=== PATIENT | male | born 1930 | race Caucasian/White ===

== ENCOUNTER → 2017-02-21 | Outpatient (CLI) | payer MEDICARE, OTHER ==
[~2017-02-21] MED LIST: LOSA100T6 PO; METO25TA35 PO; OMNIPAQUE 350 MG/ML, 100ML BOTTLE ONE; ROSU40TA PO
== END | disposition home or self-care (01) ==
LOC: RAD 07:27
PROVIDERS: ATTEND Urology
DX: C61 Malignant neoplasm of prostate (principal); N13.39 Other hydronephrosis; R59.0 Localized enlarged lymph nodes; M99.85 Other biomechanical lesions of pelvic region; I70.0 Atherosclerosis of aorta; Z90.79 Acquired absence of other genital organ(s); Z98.890 Other specified postprocedural states
CPT/HCPCS: 74177; 78306; A9503; Q9967

== ENCOUNTER 2017-04-19 23:43 | Observation (INO) | payer MEDICARE, OTHER ==
[~2017-04-19] VITALS: Ht 167.6 cm; Wt 57.6 kg
[~2017-04-19 23:43] MED LIST changes: -OMNIPAQUE 350 MG/ML, 100ML BOTTLE ONE
[2017-04-20] MEDS ORDERED: ASPIRIN 81 MG TABLET CHEW PO ONE
[2017-04-20] MEDS ORDERED: SODIUM CHLORIDE FLUSH 10ML SYR IVF ONE
[2017-04-20] MEDS ORDERED: ASPIRIN 81 MG TABLET CHEW ONE (00:02)
[2017-04-20 00:30] LABS: BLOOD UREA NITROGEN 27 mg/dL (7-18)
[2017-04-20 00:31] LABS: ASPARTATE AMINO TRANSFERASE 34 U/L (15-37)
[2017-04-20 00:35] LABS: IS PT STATUS REG ER OR PRE ER? YES
[2017-04-20] MEDS ORDERED: OMNIPAQUE 350 MG/ML, 100ML BOTTLE ONE (01:09)
[2017-04-20] MEDS ORDERED: MORPHINE SULFATE 4 MG/ML, 1ML IVPush PRN (02:00)
[2017-04-20] MEDS ORDERED: ONDANSETRON 2MG/ML, 2ML IVPush PRN ×2 (02:00→02:30)
[2017-04-20] MEDS ORDERED: RIVA20TA PO (02:12)
[2017-04-20] MEDS ORDERED: ACETAMINOPHEN 325 MG TABLET PO PRN (02:30)
[2017-04-20] MEDS ORDERED: POLYETHYLENE GLYCOL 17 GM PACKET PO PRN (02:30)
[2017-04-20] MEDS ORDERED: DOCUSATE 100 MG CAPSULE PO PRN (02:30)
[2017-04-20] MEDS ORDERED: BISACODYL 10 MG SUPP PR PRN (02:30)
[2017-04-20] MEDS ORDERED: TRAZODONE 50MG TABLET PO PRN (02:30)
[2017-04-20] MEDS ORDERED: LABETALOL 5MG/ML, 20ML IVPush PRN (02:30)
[2017-04-20 02:35] VITALS: BP 156/81
[2017-04-20 06:41] LABS: IS PT STATUS REG ER OR PRE ER? NO
[2017-04-20 07:30] VITALS: BP 146/76
[2017-04-20] MEDS ORDERED: REGADENOSON 0.4 MG/5 ML SYRINGE ONE (08:40)
[2017-04-20] MEDS ORDERED: LOSARTAN 50MG TABLET PO SCH (09:00)
[2017-04-20] MEDS ORDERED: METOPROLOL TARTRATE 25 MG TABLET PO SCH (09:00)
[2017-04-20] MEDS ORDERED: ASPIRIN 81 MG TABLET CHEW PO SCH (09:00)
[2017-04-20] MEDS ORDERED: ATORVASTATIN 80 MG TABLET PO SCH (09:00)
[2017-04-20] MEDS ORDERED: RIVAROXABAN 20 MG TABLET PO SCH (09:00)
[2017-04-20 12:34] LABS: IS PT STATUS REG ER OR PRE ER? NO
[2017-04-20 14:10] VITALS: BP 155/77
[2017-04-20] MEDS ORDERED: OMEP-110 PO (16:03)
== END 2017-04-20 17:14 | disposition home or self-care (01) ==
LOC: ED 23:59 → EDIP 04-20 01:44 → INTOOBSV 04-20 01:44 → 5SO 04-20 02:25
PROVIDERS: ADMIT Internal Medicine; ATTEND Internal Medicine
DX: R07.89 Other chest pain (principal); R79.89 Other specified abnormal findings of blood chemistry; N17.9 Acute kidney failure, unspecified; M19.90 Unspecified osteoarthritis, unspecified site; K57.90 Diverticulosis of intestine, part unspecified, without perforation or abscess without bleeding; K22.5 Diverticulum of esophagus, acquired; K22.2 Esophageal obstruction; K21.9 Gastro-esophageal reflux disease without esophagitis; D64.9 Anemia, unspecified; E78.5 Hyperlipidemia, unspecified; I10 Essential (primary) hypertension; I25.110 Atherosclerotic heart disease of native coronary artery with unstable angina pectoris; Z79.01 Long term (current) use of anticoagulants; Z85.46 Personal history of malignant neoplasm of prostate; Z86.711 Personal history of pulmonary embolism; Z87.442 Personal history of urinary calculi; Z82.49 Family history of ischemic heart disease and other diseases of the circulatory system
CPT/HCPCS: 36415; 71010; 71275; 78452; 80053; 84484; 85025; 85610; 85730; 93005; 93017; 93306; 99285; A9502; C9898; G0378; J2785; Q9967

== ENCOUNTER → 2017-04-29 | Outpatient (CLI) | payer MEDICARE, OTHER ==
[~2017-04-29] MED LIST changes: +OMEP-110 PO; +RIVA20TA PO
[2017-04-29 10:44] LABS: BLOOD UREA NITROGEN 22 mg/dL (7-18)
== END | disposition home or self-care (01) ==
LOC: LAB 10:05
PROVIDERS: ATTEND Physician Assistant
DX: I99.8 Other disorder of circulatory system (principal)
CPT/HCPCS: 36415; 80048

== ENCOUNTER → 2017-06-06 | Outpatient (CLI) | payer MEDICARE, OTHER ==
[~2017-06-06] MED LIST changes: +OMNIPAQUE 350 MG/ML, 100ML BOTTLE ONE
== END | disposition home or self-care (01) ==
LOC: RAD 13:32
PROVIDERS: ATTEND Urology
DX: C61 Malignant neoplasm of prostate (principal); K44.9 Diaphragmatic hernia without obstruction or gangrene; N28.1 Cyst of kidney, acquired; K57.30 Diverticulosis of large intestine without perforation or abscess without bleeding; J84.10 Pulmonary fibrosis, unspecified; N13.30 Unspecified hydronephrosis; M89.8X8 Other specified disorders of bone, other site
CPT/HCPCS: 74177; Q9967

== ENCOUNTER 2017-11-08 11:43 | Emergency (ER) | payer MEDICARE, OTHER ==
[~2017-11-08] VITALS: Ht 167.6 cm; Wt 56.0 kg
[~2017-11-08 11:43] MED LIST changes: -OMNIPAQUE 350 MG/ML, 100ML BOTTLE ONE
[2017-11-08 13:15] LABS: BASOPHILS # (AUTO) 0.05 x10^3/uL (0-0.1); BASOPHILS % (AUTO) 1 % (0-1); EOSINOPHILS # (AUTO) 0.06 x10^3/uL (0-0.4); EOSINOPHILS % (AUTO) 1 % (1-7); LYMPHOCYTES # (AUTO) 1.45 x10^3/uL (1-3.4); LYMPHOCYTES % (AUTO) 19 % (22-44); MD NO; MEAN CORPUSCULAR HGB CONC 33.1 g/dL (33.2-36.2); MEAN CORPUSCULAR VOLUME 93.7 fL (81-97); MONOCYTES # (AUTO) 0.65 x10^3/uL (0.2-0.8); MONOCYTES % (AUTO) 9 % (2-9); NEUTROPHILS # (AUTO) 5.38 x10^3/uL (1.8-6.8); NEUTROPHILS % (AUTO) 71 % (42-75); PLATELET COUNT 297 x10^3/uL (130-400); RED BLOOD COUNT 4.52 x10^6/uL (4.38-5.82); RED CELL DISTRIBUTION WIDTH 13.7 % (9.4-14.8)
[2017-11-08 13:25] LABS: ANION GAP 8 mmol/L (5-15); CHLORIDE 110 mmol/L (98-107); CREATININE 1.26 mg/dL (0.7-1.3)
[2017-11-08 14:39] LABS: MICROSCOPIC NOT IND
[2017-11-08 14:49] LABS: CULTURE INDICATED? NO
[2017-11-08 15:17] VITALS: BP 168/88
== END 2017-11-08 16:01 | disposition home or self-care (01) ==
LOC: ED 15:50
DX: S22.41XA Multiple fractures of ribs, right side, initial encounter for closed fracture (principal); I10 Essential (primary) hypertension; E78.00 Pure hypercholesterolemia, unspecified; W01.0XXA Fall on same level from slipping, tripping and stumbling without subsequent striking against object, initial encounter; Y93.89 Activity, other specified; Y92.89 Other specified places as the place of occurrence of the external cause; Y99.8 Other external cause status
CPT/HCPCS: 36415; 71250; 74022; 80048; 81003; 82040; 85025; 99285

== ENCOUNTER 2017-12-06 23:14 | Emergency (ER) | payer MEDICARE, OTHER ==
[~2017-12-06] VITALS: Ht 170.2 cm; Wt 57.6 kg
[2017-12-07] MEDS ORDERED: SODIUM CHLORIDE FLUSH 10ML SYR IVF ONE
[2017-12-07 00:16] LABS: BASOPHILS # (AUTO) 0.01 x10^3/uL (0-0.1); BASOPHILS % (AUTO) 0 % (0-1); EOSINOPHILS % (AUTO) 1 % (1-7); LYMPHOCYTES # (AUTO) 1.55 x10^3/uL (1-3.4); LYMPHOCYTES % (AUTO) 22 % (22-44); MD NO; MEAN CORPUSCULAR HEMOGLOBIN 30.2 pg (27.5-34.5); MEAN CORPUSCULAR HGB CONC 32.2 g/dL (33.2-36.2); MEAN CORPUSCULAR VOLUME 93.8 fL (81-97); MEAN PLATELET VOLUME 7.7 fL (7.4-10.4); MONOCYTES # (AUTO) 0.64 x10^3/uL (0.2-0.8); MONOCYTES % (AUTO) 9 % (2-9); NEUTROPHILS # (AUTO) 4.82 x10^3/uL (1.8-6.8); NEUTROPHILS % (AUTO) 68 % (42-75); PLATELET COUNT 284 x10^3/uL (130-400); RED BLOOD COUNT 4.36 x10^6/uL (4.38-5.82); RED CELL DISTRIBUTION WIDTH 13.6 % (9.4-14.8)
[2017-12-07 00:29] LABS: ALBUMIN 3.7 g/dL (3.4-5.0); ANION GAP 9 mmol/L (5-15); CALCIUM 8.7 mg/dL (8.5-10.1); CHLORIDE 110 mmol/L (98-107); CREATININE 1.32 mg/dL (0.7-1.3); T4 (THYROXINE) 9.3 mcg/dL (4.5-12.1)
[2017-12-07 01:17] VITALS: BP 109/56
== END 2017-12-07 01:49 | disposition home or self-care (01) ==
LOC: ED 23:59
DX: R61 Generalized hyperhidrosis (principal); R07.89 Other chest pain; I10 Essential (primary) hypertension; E78.00 Pure hypercholesterolemia, unspecified; Z85.46 Personal history of malignant neoplasm of prostate
CPT/HCPCS: 36415; 71045; 80048; 82040; 83880; 84436; 84443; 84484; 85025; 93005; 99285

== ENCOUNTER 2019-09-27 15:10 | Inpatient (IN) | payer MEDICARE, OTHER ==
[~2019-09-27] VITALS: Ht 167.6 cm; Wt 53.1 kg
[~2019-09-27 15:10] MED LIST changes: +LOSA100T14 PO; -LOSA100T6 PO
--- NOTE | 2019-09-27 15:16 | NUR ---
[facility] THE IMAGING RESULTS SHOWED LUMBAR SPINE FX. THE PATIENT ARRIVES A&OX4, NO COMPLAINTS OF CP, SOB, N/V. REPORT RECIEVED FROM JONATHAN EMT.
[2019-09-27] MEDS ORDERED: METH750T87 PO (15:27)
[2019-09-27] MEDS ORDERED: ONDANSETRON 2MG/ML, 2ML IVPush ONE (15:30)
[2019-09-27] MEDS ORDERED: SODIUM CHLORIDE FLUSH 10ML SYR IVF ONE (15:30)
[2019-09-27 15:54] LABS: BASOPHILS # (AUTO) 0.03 x10^3/uL (0-0.1); BASOPHILS % (AUTO) 0 % (0-1); EOSINOPHILS # (AUTO) 0.06 x10^3/uL (0-0.4); EOSINOPHILS % (AUTO) 1 % (1-7); LYMPHOCYTES # (AUTO) 1.48 x10^3/uL (1-3.4); LYMPHOCYTES % (AUTO) 16 % (22-44); MD NO; MEAN CORPUSCULAR HEMOGLOBIN 31.8 pg (27.5-34.5); MEAN CORPUSCULAR HGB CONC 32.8 g/dL (33.2-36.2); MEAN CORPUSCULAR VOLUME 96.8 fL (81-97); MEAN PLATELET VOLUME 7.5 fL (7.4-10.4); MONOCYTES # (AUTO) 0.91 x10^3/uL (0.2-0.8); MONOCYTES % (AUTO) 10 % (2-9); NEUTROPHILS # (AUTO) 6.53 x10^3/uL (1.8-6.8); NEUTROPHILS % (AUTO) 73 % (42-75); PLATELET COUNT 293 x10^3/uL (130-400); RED BLOOD COUNT 4.15 x10^6/uL (4.38-5.82); RED CELL DISTRIBUTION WIDTH 14.5 % (9.4-14.8)
[2019-09-27] MEDS ORDERED: HYDROmorphone 1 MG/ML, 1ML VIAL ONE (15:54)
[2019-09-27] MEDS ORDERED: ONDANSETRON 2MG/ML, 2ML ONE (15:55)
[2019-09-27] MEDS: HYDROmorphone 2 MG/ML, 1ML IVPush PRN ×2 (15:56→16:31)
[2019-09-27 16:01] LABS: ALBUMIN 3.5 g/dL (3.4-5.0); ANION GAP 6 mmol/L (5-15); CALCIUM 9.6 mg/dL (8.5-10.1); CHLORIDE 113 mmol/L (98-107); CREATININE 1.14 mg/dL (0.7-1.3)
[2019-09-27 16:22] LABS: MICROSCOPIC NOT IND
[2019-09-27 16:24] LABS: CULTURE INDICATED? NO
--- NOTE | 2019-09-27 16:30 | NUR ---
[facility] TO DISCUSS POC
[2019-09-27] MEDS ORDERED: SODIUM CHLORIDE FLUSH 10ML SYR IVF PRN (17:00)
--- NOTE | 2019-09-27 17:21 | NUR ---
REPORT CALLED TO ADEOLA LARIOS. PT AWARE OF TRANSFER.
--- NOTE | 2019-09-27 17:29 | NUR ---
[facility] TO DISCUSS POC
[2019-09-27] MEDS ORDERED: POLYETHYLENE GLYCOL 17 GM PACKET PO PRN (17:30)
[2019-09-27] MEDS ORDERED: ONDANSETRON ODT 4 MG PO PRN (17:30)
[2019-09-27] MEDS ORDERED: ACETAMINOPHEN 325 MG TABLET PO PRN (17:30)
[2019-09-27] MEDS ORDERED: ONDANSETRON 2MG/ML, 2ML IVPush PRN (17:30)
[2019-09-27] MEDS: OXYcodone/APAP 5/325MG TABLET PO PRN ×2 (18:43→22:15)
[2019-09-27 18:59] VITALS: BP 177/97
[2019-09-27] MEDS: ATORVASTATIN 80 MG TABLET PO SCH (21:00)
[2019-09-28 00:30] VITALS: BP 135/72
[2019-09-28 04:59] LABS: BASOPHILS # (AUTO) 0.04 x10^3/uL (0-0.1); BASOPHILS % (AUTO) 1 % (0-1); EOSINOPHILS # (AUTO) 0.17 x10^3/uL (0-0.4); EOSINOPHILS % (AUTO) 3 % (1-7); LYMPHOCYTES # (AUTO) 1.63 x10^3/uL (1-3.4); LYMPHOCYTES % (AUTO) 28 % (22-44); MD NO; MEAN CORPUSCULAR HEMOGLOBIN 31.9 pg (27.5-34.5); MEAN CORPUSCULAR HGB CONC 32.8 g/dL (33.2-36.2); MEAN PLATELET VOLUME 7.2 fL (7.4-10.4); MONOCYTES # (AUTO) 0.75 x10^3/uL (0.2-0.8); MONOCYTES % (AUTO) 13 % (2-9); NEUTROPHILS # (AUTO) 3.25 x10^3/uL (1.8-6.8); NEUTROPHILS % (AUTO) 56 % (42-75); PLATELET COUNT 245 x10^3/uL (130-400); RED BLOOD COUNT 3.79 x10^6/uL (4.38-5.82); RED CELL DISTRIBUTION WIDTH 14.6 % (9.4-14.8)
[2019-09-28 05:07] LABS: ANION GAP 1 mmol/L (5-15); CHLORIDE 114 mmol/L (98-107)
[2019-09-28 05:11] LABS: ALANINE AMINOTRANSFERASE 22 U/L (12-78); ALKALINE PHOSPHATASE 86 U/L (45-117); BILIRUBIN,TOTAL 0.5 mg/dL (0.2-1.0); CREATININE 1.11 mg/dL (0.7-1.3); TOTAL PROTEIN 5.8 g/dL (6.4-8.2)
[2019-09-28] MEDS: morphine SULFATE 10 MG/ML, 1ML IVPush PRN ×3 (06:27→16:12)
[2019-09-28 06:59] VITALS: BP 138/81
[2019-09-28] MEDS: METOPROLOL SUCCINATE 25 MG TAB.ER.24H PO SCH (07:50)
[2019-09-28] MEDS: METHOCARBAMOL 750 MG TABLET PO SCH (07:51)
[2019-09-28] MEDS: LOSARTAN 50MG TABLET PO SCH (07:51)
[2019-09-28] MEDS ORDERED: OMNIPAQUE 350 MG/ML, 100ML BOTTLE ONE (09:32)
[2019-09-28] MEDS: OXYcodone/APAP 5/325MG TABLET PO PRN ×3 (10:36→21:40)
[2019-09-28] MEDS ORDERED: LIDODERM 5% PATCH TD PRN (11:30)
[2019-09-28 12:44] VITALS: BP 155/81
[2019-09-28 19:44] VITALS: BP 142/72
[2019-09-28] MEDS: ATORVASTATIN 80 MG TABLET PO SCH (21:40)
[2019-09-28] MEDS: SENNA/DOCUSATE TABLET PO PRN (21:41)
[2019-09-29 03:56] VITALS: BP 139/73
[2019-09-29] MEDS: OXYcodone/APAP 5/325MG TABLET PO PRN ×5 (04:19→22:17)
[2019-09-29 05:22] LABS: BASOPHILS # (AUTO) 0.04 x10^3/uL (0-0.1); BASOPHILS % (AUTO) 1 % (0-1); EOSINOPHILS % (AUTO) 2 % (1-7); LYMPHOCYTES # (AUTO) 1.22 x10^3/uL (1-3.4); LYMPHOCYTES % (AUTO) 15 % (22-44); MD NO; MEAN CORPUSCULAR HEMOGLOBIN 31.4 pg (27.5-34.5); MEAN CORPUSCULAR HGB CONC 32.3 g/dL (33.2-36.2); MEAN CORPUSCULAR VOLUME 97.1 fL (81-97); MEAN PLATELET VOLUME 7.6 fL (7.4-10.4); MONOCYTES # (AUTO) 0.66 x10^3/uL (0.2-0.8); MONOCYTES % (AUTO) 8 % (2-9); NEUTROPHILS # (AUTO) 6.03 x10^3/uL (1.8-6.8); NEUTROPHILS % (AUTO) 74 % (42-75); PLATELET COUNT 273 x10^3/uL (130-400); RED BLOOD COUNT 4.03 x10^6/uL (4.38-5.82); RED CELL DISTRIBUTION WIDTH 14.3 % (9.4-14.8)
[2019-09-29 05:24] LABS: ANION GAP 5 mmol/L (5-15); CHLORIDE 111 mmol/L (98-107); CREATININE 1.11 mg/dL (0.7-1.3)
[2019-09-29 08:14] VITALS: BP 150/70
[2019-09-29] MEDS: METOPROLOL SUCCINATE 25 MG TAB.ER.24H PO SCH (08:16)
[2019-09-29] MEDS: LOSARTAN 50MG TABLET PO SCH (08:16)
[2019-09-29] MEDS: METHOCARBAMOL 750 MG TABLET PO SCH ×2 (08:17→09:00)
[2019-09-29] MEDS ORDERED: GADOTERATE 7.5 MMOL/15 ML SYR ONE (13:00)
[2019-09-29 13:15] VITALS: BP 125/60
[2019-09-29 18:32] VITALS: BP 127/52
[2019-09-29] MEDS: ATORVASTATIN 80 MG TABLET PO SCH (20:56)
[2019-09-30 01:15] VITALS: BP 100/57
[2019-09-30 06:07] VITALS: BP 101/55
[2019-09-30 06:55] VITALS: BP 129/48
[2019-09-30 08:15] VITALS: BP 138/67
[2019-09-30] MEDS: METHOCARBAMOL 750 MG TABLET PO SCH (09:00)
[2019-09-30] MEDS: OXYcodone/APAP 5/325MG TABLET PO PRN ×3 (11:53→21:12)
[2019-09-30] MEDS: LOSARTAN 50MG TABLET PO SCH (11:56)
[2019-09-30] MEDS: METOPROLOL SUCCINATE 25 MG TAB.ER.24H PO SCH (11:57)
[2019-09-30 13:24] VITALS: BP 121/77
[2019-09-30 19:40] VITALS: BP 146/80
[2019-09-30] MEDS: ATORVASTATIN 80 MG TABLET PO SCH (21:12)
[2019-10-01 01:46] VITALS: BP 137/74
[2019-10-01 07:39] VITALS: BP 109/65
[2019-10-01] MEDS: METOPROLOL SUCCINATE 25 MG TAB.ER.24H PO SCH (07:47)
[2019-10-01] MEDS: LOSARTAN 50MG TABLET PO SCH ×2 (07:48→07:53)
[2019-10-01] MEDS: OXYcodone/APAP 5/325MG TABLET PO PRN ×3 (07:49→16:55)
[2019-10-01] MEDS: SENNA/DOCUSATE TABLET PO PRN (07:50)
[2019-10-01] MEDS: METHOCARBAMOL 750 MG TABLET PO SCH (07:52)
[2019-10-01 13:38] VITALS: BP 125/70
[2019-10-01] MEDS ORDERED: MIDAZOLAM 1 MG/ML, 5ML ONE (14:31)
[2019-10-01] MEDS ORDERED: FENTANYL PF 100 MCG/2ML ONE (14:31)
[2019-10-01] MEDS ORDERED: NALOXONE 1 MG/ML, 2ML ONE (14:31)
[2019-10-01] MEDS ORDERED: FLUMAZENIL 0.1 MG/1 ML, 5ML ONE (14:31)
[2019-10-01 15:45] VITALS: BP 106/58
[2019-10-01 19:39] VITALS: BP 105/66
[2019-10-01] MEDS: ATORVASTATIN 80 MG TABLET PO SCH (19:56)
[2019-10-02 03:00] VITALS: BP 109/63
[2019-10-02] MEDS: METHOCARBAMOL 750 MG TABLET PO SCH (07:39)
[2019-10-02 07:54] VITALS: BP 131/68
[2019-10-02] MEDS: OXYcodone/APAP 5/325MG TABLET PO PRN ×4 (07:56→20:32)
[2019-10-02] MEDS: LOSARTAN 50MG TABLET PO SCH (07:56)
[2019-10-02] MEDS: METOPROLOL SUCCINATE 25 MG TAB.ER.24H PO SCH (07:57)
[2019-10-02] MEDS: SENNA/DOCUSATE TABLET PO PRN ×2 (08:01→20:32)
[2019-10-02 13:42] VITALS: BP 127/7
[2019-10-02 19:32] VITALS: BP 140/70
[2019-10-02] MEDS: ATORVASTATIN 80 MG TABLET PO SCH (20:32)
[2019-10-03 03:00] VITALS: BP 131/62
[2019-10-03 04:53] LABS: HCT (SEDRATE) 37.6 % (39.2-51.8)
[2019-10-03 04:55] LABS: BASOPHILS # (AUTO) 0.04 x10^3/uL (0-0.1); BASOPHILS % (AUTO) 1 % (0-1); EOSINOPHILS # (AUTO) 0.17 x10^3/uL (0-0.4); EOSINOPHILS % (AUTO) 3 % (1-7); LYMPHOCYTES % (AUTO) 17 % (22-44); MD NO; MEAN CORPUSCULAR HEMOGLOBIN 31.6 pg (27.5-34.5); MEAN CORPUSCULAR HGB CONC 32.7 g/dL (33.2-36.2); MEAN CORPUSCULAR VOLUME 96.5 fL (81-97); MEAN PLATELET VOLUME 7.3 fL (7.4-10.4); MONOCYTES # (AUTO) 0.52 x10^3/uL (0.2-0.8); MONOCYTES % (AUTO) 9 % (2-9); NEUTROPHILS # (AUTO) 4.23 x10^3/uL (1.8-6.8); NEUTROPHILS % (AUTO) 71 % (42-75); PLATELET COUNT 277 x10^3/uL (130-400); RED BLOOD COUNT 3.87 x10^6/uL (4.38-5.82); RED CELL DISTRIBUTION WIDTH 14.8 % (9.4-14.8)
[2019-10-03] MEDS: morphine SULFATE 10 MG/ML, 1ML IVPush PRN ×2 (04:58→12:25)
[2019-10-03 05:05] LABS: ANION GAP 6 mmol/L (5-15); CALCIUM 9.3 mg/dL (8.5-10.1); CHLORIDE 110 mmol/L (98-107)
[2019-10-03 05:07] LABS: CREATININE 1.03 mg/dL (0.7-1.3)
[2019-10-03 05:23] LABS: HEMOGLOBIN A1C 5.6 % (4.2-6.3)
[2019-10-03] MEDS ORDERED: CEFAZOLIN PMX 1GM/50ML 50 ML IVPB SCH (06:00)
[2019-10-03 07:51] VITALS: BP 145/79
[2019-10-03] MEDS ORDERED: EPINEPHRINE 1 MG/ML, 1ML ONE (08:09)
[2019-10-03] MEDS ORDERED: BUPIVACAINE/PF 0.5% ONE (08:09)
[2019-10-03] MEDS: METOPROLOL SUCCINATE 25 MG TAB.ER.24H PO SCH (08:10)
[2019-10-03] MEDS: METHOCARBAMOL 750 MG TABLET PO SCH (08:10)
[2019-10-03] MEDS: LOSARTAN 50MG TABLET PO SCH (08:10)
[2019-10-03] MEDS ORDERED: ROCURONIUM 10 MG/ML,10ML ONE (08:45)
[2019-10-03] MEDS ORDERED: LIDOCAINE PF 2%, 5ML ONE (08:45)
[2019-10-03] MEDS ORDERED: PROPOFOL 10 MG/ML, 20ML ONE (08:45)
[2019-10-03] MEDS ORDERED: CEFAZOLIN 1,000 MG ONE (08:45)
[2019-10-03] MEDS ORDERED: HYDROmorphone 2 MG/ML, 1ML IVPush PRN (09:30)
[2019-10-03] MEDS ORDERED: ACETAMINOPHEN 325 MG TABLET PO PRN (09:30)
[2019-10-03] MEDS ORDERED: OXYcodone 5 MG/5 ML ORAL.SOL UDC PO PRN (09:30)
[2019-10-03] MEDS ORDERED: hydrALAzine 20 MG/ML, 1ML IV PRN (09:30)
[2019-10-03] MEDS ORDERED: OMNIPAQUE 300 MG/ML, 10ML VIAL ONE (09:30)
[2019-10-03] MEDS ORDERED: ONDANSETRON 2MG/ML, 2ML IV PRN (09:30)
[2019-10-03] MEDS ORDERED: LORazepam 2 MG/ML, 1ML IVPush PRN (09:30)
[2019-10-03] MEDS ORDERED: MEPERIDINE/PF 25MG/ML,1ML IVPush PRN (09:30)
[2019-10-03] MEDS ORDERED: LABETALOL 5MG/ML, 20ML IV PRN (09:30)
[2019-10-03] MEDS ORDERED: OXYcodone 5 MG/5 ML ORAL.SOL UDC ONE (10:30)
[2019-10-03] MEDS: FENTANYL PF 100 MCG/2ML IV PRN ×4 (10:30→11:10)
[2019-10-03] MEDS ORDERED: FENTANYL PF 100 MCG/2ML ONE (10:30)
[2019-10-03] MEDS ORDERED: ACETAMINOPHEN 650 MG/20.3 ML UDC ONE (10:47)
[2019-10-03 12:11] VITALS: BP 152/78
[2019-10-03] MEDS: OXYcodone/APAP 5/325MG TABLET PO PRN ×2 (15:45→20:03)
[2019-10-03 18:40] VITALS: BP 106/67
[2019-10-03] MEDS: ATORVASTATIN 80 MG TABLET PO SCH (20:03)
[2019-10-04 02:03] VITALS: BP 124/65
[2019-10-04 05:58] LABS: ANION GAP 7 mmol/L (5-15); BASOPHILS # (AUTO) 0.01 x10^3/uL (0-0.1); BASOPHILS % (AUTO) 0 % (0-1); CALCIUM 8.7 mg/dL (8.5-10.1); CHLORIDE 111 mmol/L (98-107); CREATININE 0.96 mg/dL (0.7-1.3); EOSINOPHILS # (AUTO) 0.06 x10^3/uL (0-0.4); EOSINOPHILS % (AUTO) 1 % (1-7); LYMPHOCYTES # (AUTO) 0.59 x10^3/uL (1-3.4); LYMPHOCYTES % (AUTO) 6 % (22-44); MD NO; MEAN CORPUSCULAR HEMOGLOBIN 31.6 pg (27.5-34.5); MEAN CORPUSCULAR HGB CONC 32.8 g/dL (33.2-36.2); MEAN CORPUSCULAR VOLUME 96.4 fL (81-97); MEAN PLATELET VOLUME 7.5 fL (7.4-10.4); MONOCYTES # (AUTO) 0.58 x10^3/uL (0.2-0.8); MONOCYTES % (AUTO) 6 % (2-9); NEUTROPHILS # (AUTO) 8.84 x10^3/uL (1.8-6.8); NEUTROPHILS % (AUTO) 88 % (42-75); PLATELET COUNT 241 x10^3/uL (130-400); RED BLOOD COUNT 3.55 x10^6/uL (4.38-5.82); RED CELL DISTRIBUTION WIDTH 14.6 % (9.4-14.8)
[2019-10-04] MEDS: morphine SULFATE 10 MG/ML, 1ML IVPush PRN (06:39)
[2019-10-04 07:52] VITALS: BP 109/56
[2019-10-04] MEDS: OXYcodone/APAP 5/325MG TABLET PO PRN ×4 (08:24→21:16)
[2019-10-04] MEDS: METHOCARBAMOL 750 MG TABLET PO SCH (09:00)
[2019-10-04] MEDS: METOPROLOL SUCCINATE 25 MG TAB.ER.24H PO SCH (09:00)
[2019-10-04] MEDS: LOSARTAN 50MG TABLET PO SCH (09:00)
[2019-10-04 13:38] VITALS: BP 103/62
[2019-10-04 18:38] VITALS: BP 138/68
[2019-10-04] MEDS: ATORVASTATIN 80 MG TABLET PO SCH (21:00)
[2019-10-05 02:00] VITALS: BP 153/78
[2019-10-05] MEDS: morphine SULFATE 10 MG/ML, 1ML IVPush PRN ×2 (03:32→06:37)
[2019-10-05 04:45] LABS: BASOPHILS # (AUTO) 0.02 x10^3/uL (0-0.1); BASOPHILS % (AUTO) 0 % (0-1); EOSINOPHILS # (AUTO) 0.04 x10^3/uL (0-0.4); EOSINOPHILS % (AUTO) 0 % (1-7); LYMPHOCYTES # (AUTO) 0.44 x10^3/uL (1-3.4); LYMPHOCYTES % (AUTO) 4 % (22-44); MD NO; MEAN CORPUSCULAR HEMOGLOBIN 31.8 pg (27.5-34.5); MEAN CORPUSCULAR HGB CONC 32.8 g/dL (33.2-36.2); MEAN CORPUSCULAR VOLUME 97.2 fL (81-97); MEAN PLATELET VOLUME 7.6 fL (7.4-10.4); MONOCYTES # (AUTO) 0.65 x10^3/uL (0.2-0.8); MONOCYTES % (AUTO) 5 % (2-9); NEUTROPHILS # (AUTO) 10.91 x10^3/uL (1.8-6.8); NEUTROPHILS % (AUTO) 91 % (42-75); PLATELET COUNT 256 x10^3/uL (130-400); RED BLOOD COUNT 3.49 x10^6/uL (4.38-5.82); RED CELL DISTRIBUTION WIDTH 14.7 % (9.4-14.8)
[2019-10-05 04:56] LABS: ANION GAP 8 mmol/L (5-15); CALCIUM 8.5 mg/dL (8.5-10.1); CHLORIDE 110 mmol/L (98-107); CREATININE 0.94 mg/dL (0.7-1.3)
[2019-10-05 07:58] VITALS: BP 136/76
[2019-10-05] MEDS: METOPROLOL SUCCINATE 25 MG TAB.ER.24H PO SCH (08:02)
[2019-10-05] MEDS: METHOCARBAMOL 750 MG TABLET PO SCH (08:04)
[2019-10-05] MEDS: LOSARTAN 50MG TABLET PO SCH (08:22)
[2019-10-05] MEDS: OXYcodone/APAP 5/325MG TABLET PO PRN ×4 (08:22→21:02)
[2019-10-05 13:23] VITALS: BP 115/61
[2019-10-05 19:29] VITALS: BP 131/64
[2019-10-05] MEDS: ATORVASTATIN 80 MG TABLET PO SCH (20:51)
[2019-10-06 01:06] VITALS: BP 126/69
[2019-10-06] MEDS: OXYcodone/APAP 5/325MG TABLET PO PRN ×4 (01:14→13:23)
[2019-10-06 01:40] LABS: MICROSCOPIC NOT IND
[2019-10-06 02:06] LABS: CULTURE INDICATED? NO
[2019-10-06 05:44] LABS: ALBUMIN 2.5 g/dL (3.4-5.0); ANION GAP 4 mmol/L (5-15); CALCIUM 8.7 mg/dL (8.5-10.1); CHLORIDE 110 mmol/L (98-107)
[2019-10-06 05:47] LABS: ALANINE AMINOTRANSFERASE 35 U/L (12-78); ALKALINE PHOSPHATASE 198 U/L (45-117); BILIRUBIN,TOTAL 0.5 mg/dL (0.2-1.0); CREATININE 0.95 mg/dL (0.7-1.3); TOTAL PROTEIN 5.7 g/dL (6.4-8.2)
[2019-10-06 05:50] LABS: BASOPHILS # (AUTO) 0.03 x10^3/uL (0-0.1); BASOPHILS % (AUTO) 1 % (0-1); EOSINOPHILS # (AUTO) 0.21 x10^3/uL (0-0.4); EOSINOPHILS % (AUTO) 3 % (1-7); LYMPHOCYTES # (AUTO) 1.32 x10^3/uL (1-3.4); LYMPHOCYTES % (AUTO) 21 % (22-44); MD NO; MEAN CORPUSCULAR HGB CONC 32.6 g/dL (33.2-36.2); MEAN CORPUSCULAR VOLUME 97.9 fL (81-97); MEAN PLATELET VOLUME 7.6 fL (7.4-10.4); MONOCYTES # (AUTO) 0.59 x10^3/uL (0.2-0.8); MONOCYTES % (AUTO) 9 % (2-9); NEUTROPHILS # (AUTO) 4.28 x10^3/uL (1.8-6.8); NEUTROPHILS % (AUTO) 67 % (42-75); PLATELET COUNT 268 x10^3/uL (130-400); RED BLOOD COUNT 3.29 x10^6/uL (4.38-5.82); RED CELL DISTRIBUTION WIDTH 14.4 % (9.4-14.8)
[2019-10-06 08:17] VITALS: BP 153/73
[2019-10-06] MEDS: LOSARTAN 50MG TABLET PO SCH (09:38)
[2019-10-06] MEDS: METHOCARBAMOL 750 MG TABLET PO SCH (09:38)
[2019-10-06] MEDS: METOPROLOL SUCCINATE 25 MG TAB.ER.24H PO SCH (09:39)
[2019-10-06] MEDS: SENNA/DOCUSATE TABLET PO PRN (09:41)
[2019-10-06 12:44] VITALS: BP 169/80
[2019-10-06] MEDS ORDERED: SENN-193 PO (12:46)
[2019-10-06] MEDS ORDERED: OXYcodone/APAP 5/325MG PO (12:46)
[2019-10-06] MEDS ORDERED: POLY17PO5 PO (12:46)
== END 2019-10-06 14:10 | disposition home or self-care (01) | DRG 477 ==
LOC: ED 16:20 → EDIP 16:57 → 4NW 17:57 → DCLOUNGE 10-06 13:48
PROVIDERS: ADMIT Family Medicine; ATTEND Hospitalist
PROC: 0QB03ZX Excision of Lumbar Vertebra, Percutaneous Approach, Diagnostic (ICD-10-PCS; principal; 2019-09-27)
PROC: 0QS03ZZ Reposition Lumbar Vertebra, Percutaneous Approach (ICD-10-PCS; 2019-09-27)
PROC: 0QU03JZ Supplement Lumbar Vertebra with Synthetic Substitute, Percutaneous Approach (ICD-10-PCS; 2019-09-27)
PROC: 0Q503ZZ Destruction of Lumbar Vertebra, Percutaneous Approach (ICD-10-PCS; 2019-09-27)
PROC: 4A11X4G Monitoring of Peripheral Nervous Electrical Activity, Intraoperative, External Approach (ICD-10-PCS; 2019-09-27)
DX: M48.56XA Collapsed vertebra, not elsewhere classified, lumbar region, initial encounter for fracture (principal); E43 Unspecified severe protein-calorie malnutrition; C79.51 Secondary malignant neoplasm of bone; Z68.1 Body mass index [BMI] 19.9 or less, adult; G83.4 Cauda equina syndrome; C61 Malignant neoplasm of prostate; M85.88 Other specified disorders of bone density and structure, other site; D64.9 Anemia, unspecified; D72.829 Elevated white blood cell count, unspecified; E78.00 Pure hypercholesterolemia, unspecified; E78.5 Hyperlipidemia, unspecified; I10 Essential (primary) hypertension; M48.07 Spinal stenosis, lumbosacral region; K21.9 Gastro-esophageal reflux disease without esophagitis; Z66 Do not resuscitate; Z96.611 Presence of right artificial shoulder joint; R19.09 Other intra-abdominal and pelvic swelling, mass and lump; Z82.49 Family history of ischemic heart disease and other diseases of the circulatory system; Z82.5 Family history of asthma and other chronic lower respiratory diseases; Z86.711 Personal history of pulmonary embolism; Z90.79 Acquired absence of other genital organ(s); Z92.3 Personal history of irradiation
CPT/HCPCS: 20225; 36415; 71045; 71046; 72100; 72158; 74177; 77012; 78306; 80048; 80053; 81003; 82040; 83036; 83735; 84100; 84153; 85025; 85651; 85730; 88307; 88311; 88341; 88342; 93005; 96374; 96375; 96376; 99156; 99157; 99285; C1713; G0378; J0171; J0690; J1170; J2250; J2405; J2704; J3010; Q0162; Q9967; A9503; A9575; C1886; C9898; J2270; J2310